=== PATIENT | female | born 1935 | race Caucasian/White ===

== ENCOUNTER 2016-04-20 14:55 | Observation (INO) | payer OTHER ==
[~2016-04-20] VITALS: Ht 269.2 cm; Wt 83.9 kg
[2016-04-20 16:51] LABS: MCH 28.7 PG (29.0-34.0); MCHC 32.9 G/DL (30.0-36.0); MCV 87.2 FL (83-99); MEAN PLAT.VOLUME 9.3 uM^3 (9.5-12.4); PLATELET COUNT 230 K/uL (156-360); RBC DIS.WIDTH-CV 13.9 % (11.8-14.6); RED BLOOD COUNT 4.36 M/uL (3.80-5.20)
[2016-04-20 17:03] LABS: CHLORIDE 110 mEq/L (99-109); SODIUM 141 mEq/L (136-147)
[2016-04-20 17:05] LABS: GLUCOSE 105 mg/dL (70-99)
[2016-04-20 17:06] LABS: ANION GAP 7 MEQ/L (2-14)
[2016-04-20 17:08] LABS: SERUM ETHYL ALCOHOL < 10 mg/dL
[2016-04-20 17:09] LABS: GFR ESTIMATE (CALCULATED) > 59 mL/min/
[2016-04-20 17:10] LABS: UREA NITROGEN (BUN) 14 mg/dL (9-23)
[2016-04-20 17:17] LABS: TROP-I INTERPRETATION NEGATIVE; TROPONIN-I 0.02 ng/mL (0.0-0.30)
[2016-04-20 20:06] LABS: ADD MIUA? YES; BILIRUBIN NEGATIVE; BLOOD NEGATIVE; COLOR YELLOW ((YELLOW)); GLUCOSE (STRIP) NEGATIVE; KETONES 5; LEUKOCYTES TRACE; NITRITE POSITIVE; PROTEIN (STRIP) NEGATIVE; SPECIFIC GRAVITY 1.021 (1.000-1.030); UROBILINOGEN 0.2 MG/DL (0.2-1.0)
[2016-04-20 20:17] LABS: BACTERIA 1+ /HPF; EPITHELIAL CELLS RARE /HPF; HYALINE CASTS 0-5 /LPF; MUCUS 1+ /LPF; UCUL ADDED? NO; UNCLASSIFIED CRYSTALS 3+ /HPF
[2016-04-20 20:28] LABS: AMPHETAMINE NEGATIVE (500 ng/mL); BARBITURATES NEGATIVE (200 ng/mL); BENZODIAZEPINES NEGATIVE (150 ng/mL); COCAINE NEGATIVE (150 ng/mL); INTERNAL CONTROLS VALID? YES; METHADONE NEGATIVE (200 ng/mL); METHAMPHETAMINE NEGATIVE (500 ng/mL); OPIATES (MORPHINE) NEGATIVE (100 ng/mL); OXYCODONE NEGATIVE (100 ng/mL); PHENCYCLIDINE NEGATIVE (25 ng/mL); PROPOXYPHENE NEGATIVE (300 ng/mL); THC CANNABINOIDS NEGATIVE (50 ng/mL); TRICYCLIC ANTIDEPRESSANTS NEGATIVE (300 ng/mL)
[2016-04-21 00:50] VITALS: BP 167/70
[2016-04-21 05:04] VITALS: BP 129/60
[2016-04-21 09:10] VITALS: BP 136/60
[2016-04-21 11:54] VITALS: BP 125/65
[2016-04-21 16:15] VITALS: BP 169/75
[2016-04-21 20:00] VITALS: BP 137/60
[2016-04-22 00:04] VITALS: BP 130/63
[2016-04-22 08:40] VITALS: BP 186/85
[2016-04-22 11:44] VITALS: BP 157/78
[2016-04-22 16:00] VITALS: BP 144/71
[2016-04-22] MEDS ORDERED: RISPERIDONE1 MG PO (16:17)
[2016-04-22] MEDS ORDERED: LISINOPRIL10 MG PO (16:17)
[2016-04-22] MEDS ORDERED: BACTRIM,SEPT1 TABLET PO (16:17)
[2016-04-22] MEDS ORDERED: CEPACOL SORE T1 EAC9 MM (16:53)
== END 2016-04-22 18:42 | disposition home or self-care (01) ==
LOC: EME 14:55 → 5WEST 22:48 → EDOF 22:48 → 5WEST 23:43
PROVIDERS: Emergency Medicine; Nurse Practitioner Adult Health
DX: N39.0 Urinary tract infection, site not specified (principal); F20.9 Schizophrenia, unspecified; F29 Unspecified psychosis not due to a substance or known physiological condition; R41.82 Altered mental status, unspecified; M79.672 Pain in left foot; M79.671 Pain in right foot; S90.421A Blister (nonthermal), right great toe, initial encounter; S90.422A Blister (nonthermal), left great toe, initial encounter; S90.425A Blister (nonthermal), left lesser toe(s), initial encounter; S90.821A Blister (nonthermal), right foot, initial encounter; S90.822A Blister (nonthermal), left foot, initial encounter; L97.519 Non-pressure chronic ulcer of other part of right foot with unspecified severity; Z88.8 Allergy status to other drugs, medicaments and biological substances
CPT/HCPCS: 70450; 71020; 73630; 80048; 81003; 84484; 85027; 87077; 87086; 87186; 93005; 93925; 99281; 99285; G0378; G0480; G8978 GP CJ; G8979 GP CI; G8980 CJ; G8987 GO CJ; G8988 CI; G8989 CJ; J0696; J1644; J7030; J7050